=== PATIENT | female | born 1975 | race Caucasian/White ===

== ENCOUNTER 2019-12-28 22:12 | Inpatient (IN) | payer OTHER ==
[~2019-12-28] VITALS: Ht 165.1 cm; Wt 99.1 kg
[2019-12-28] MEDS ORDERED: MORPHINE SULFATE 4 MG/ML, 1ML IVPush PRN (23:00)
[2019-12-28] MEDS ORDERED: MORPHINE SULFATE 4 MG/ML, 1ML ONE (23:00)
[2019-12-28] MEDS ORDERED: ONDANSETRON 2MG/ML, 2ML IVPush ONE (23:00)
[2019-12-28] MEDS ORDERED: ONDANSETRON 2MG/ML, 2ML ONE (23:00)
[2019-12-28] MEDS ORDERED: LORazepam 2 MG/ML, 1ML IVPush ONE (23:00)
[2019-12-28] MEDS ORDERED: SODIUM CHLORIDE FLUSH 10ML SYR IVF ONE (23:00)
[2019-12-28 23:03] LABS: BASOPHILS # (AUTO) 0.05 x10^3/uL (0-0.1); BASOPHILS % (AUTO) 0 % (0-1); EOSINOPHILS # (AUTO) 0.04 x10^3/uL (0-0.4); EOSINOPHILS % (AUTO) 0 % (1-7); LYMPHOCYTES # (AUTO) 2.02 x10^3/uL (1-3.4); LYMPHOCYTES % (AUTO) 16 % (22-44); MD NO; MEAN CORPUSCULAR HEMOGLOBIN 24.7 pg (27.0-34.8); MEAN CORPUSCULAR HGB CONC 32.2 g/dL (32.4-35.8); MEAN CORPUSCULAR VOLUME 76.8 fL (80-100); MEAN PLATELET VOLUME 7.7 fL (7.4-10.4); MONOCYTES # (AUTO) 0.93 x10^3/uL (0.2-0.8); MONOCYTES % (AUTO) 7 % (2-9); NEUTROPHILS # (AUTO) 9.72 x10^3/uL (1.8-6.8); NEUTROPHILS % (AUTO) 76 % (42-75); PLATELET COUNT 340 x10^3/uL (130-400); RED BLOOD COUNT 4.27 x10^6/uL (3.82-5.3)
[2019-12-28 23:13] LABS: ALANINE AMINOTRANSFERASE 96 U/L (12-78); ALBUMIN 3.7 g/dL (3.4-5.0); ANION GAP 11 mmol/L (5-15); CALCIUM 8.9 mg/dL (8.5-10.1); CHLORIDE 102 mmol/L (98-107); CREATININE 1.05 mg/dL (0.55-1.02)
[2019-12-28] MEDS ORDERED: LORazepam 2 MG/ML, 1ML ONE (23:13)
[2019-12-28 23:18] LABS: ALKALINE PHOSPHATASE 79 U/L (45-117); BILIRUBIN,TOTAL 0.4 mg/dL (0.2-1.0); TOTAL PROTEIN 7.6 g/dL (6.4-8.2)
--- NOTE | 2019-12-29 00:11 | NUR ---
pt with c/o diffuse abd that started around 12 hours ago. pt medicated for pain and anxiety per emar. pt verbalized relief of pain and pt is visibly less anxious, laying comfortably on gurney with SO at bedside.
[2019-12-29] MEDS ORDERED: OMNIPAQUE 350 MG/ML, 100ML BOTTLE ONE (00:30)
[2019-12-29 00:53] LABS: MICROSCOPIC INDICATED
[2019-12-29 00:54] LABS: CULTURE INDICATED? YES
[2019-12-29] MEDS ORDERED: levothyroxine PO (01:19)
[2019-12-29] MEDS ORDERED: hydrochlorothiazide PO (01:21)
[2019-12-29] MEDS ORDERED: prozac PO (01:21)
[2019-12-29] MEDS ORDERED: lisinopril PO (01:21)
[2019-12-29] MEDS ORDERED: ONDANSETRON 2MG/ML, 2ML IVPush PRN (02:30)
[2019-12-29] MEDS ORDERED: morphine SULFATE 10 MG/ML, 1ML IVPush PRN (02:30)
[2019-12-29 02:48] LABS: CHOL/HDL RATIO 5.3; LDL/HDL RATIO 3.3 (0.5-3.0)
[2019-12-29] MEDS ORDERED: OMEP20CA20 PO (03:16)
[2019-12-29] MEDS ORDERED: CEFTRIAXONE PMX 2GM/50ML 50 ML IV SCH (04:00)
[2019-12-29 05:34] VITALS: BP 151/85
[2019-12-29 07:24] VITALS: BP 149/76
[2019-12-29] MEDS ORDERED: MAGNESIUM CITRATE 300ML ORAL SOL PO ONE (07:30)
[2019-12-29] MEDS ORDERED: KETOROLAC 30 MG/1 ML IVPush PRN (07:30)
[2019-12-29] MEDS ORDERED: BISACODYL 10 MG SUPP PR ONE (07:30)
[2019-12-29 08:25] LABS: ALANINE AMINOTRANSFERASE 94 U/L (12-78); ALBUMIN 3.6 g/dL (3.4-5.0); ANION GAP 9 mmol/L (5-15); CALCIUM 8.7 mg/dL (8.5-10.1); CHLORIDE 101 mmol/L (98-107); CREATININE 0.93 mg/dL (0.55-1.02)
[2019-12-29 08:27] LABS: ALKALINE PHOSPHATASE 80 U/L (45-117); BILIRUBIN,TOTAL 0.4 mg/dL (0.2-1.0); TOTAL PROTEIN 7.5 g/dL (6.4-8.2)
[2019-12-29] MEDS ORDERED: ONDANSETRON ODT 4 MG PO PRN (08:30)
[2019-12-29] MEDS ORDERED: ONDANSETRON 4 MG TABLET ONE (08:34)
[2019-12-29 08:36] LABS: BASOPHILS # (AUTO) 0.11 x10^3/uL (0-0.1); BASOPHILS % (AUTO) 1 % (0-1); EOSINOPHILS # (AUTO) 0.12 x10^3/uL (0-0.4); EOSINOPHILS % (AUTO) 1 % (1-7); LYMPHOCYTES # (AUTO) 2.87 x10^3/uL (1-3.4); LYMPHOCYTES % (AUTO) 21 % (22-44); MD NO; MEAN CORPUSCULAR HEMOGLOBIN 24.3 pg (27.0-34.8); MEAN CORPUSCULAR HGB CONC 31.4 g/dL (32.4-35.8); MEAN CORPUSCULAR VOLUME 77.5 fL (80-100); MEAN PLATELET VOLUME 7.8 fL (7.4-10.4); MONOCYTES # (AUTO) 1.06 x10^3/uL (0.2-0.8); MONOCYTES % (AUTO) 8 % (2-9); NEUTROPHILS # (AUTO) 9.84 x10^3/uL (1.8-6.8); NEUTROPHILS % (AUTO) 70 % (42-75); PLATELET COUNT 363 x10^3/uL (130-400); RED BLOOD COUNT 4.33 x10^6/uL (3.82-5.3); RED CELL DISTRIBUTION WIDTH 16.2 % (9.6-15.2)
[2019-12-29] MEDS: SODIUM CHLORIDE 0.9% 1,000 ML IV SCH (09:46)
[2019-12-29] MEDS: HEPARIN 5,000 UNITS/ML, 1ML SQ SCH ×2 (09:46→16:46)
[2019-12-29] MEDS: ACETAMINOPHEN 325 MG TABLET PO PRN ×2 (10:20→20:30)
[2019-12-29 13:56] LABS: CLOSTRIDIUM DIFFICILE ANTIGEN NEGATIVE; CLOSTRIDIUM DIFFICILE TOXIN NEGATIVE (Negative)
[2019-12-29] MEDS ORDERED: SIMETHICONE 80 MG CHEW TAB PO PRN (15:00)
[2019-12-29 16:00] VITALS: BP 143/68
[2019-12-29] MEDS: LACTOBACILLUS CHEW TABLET PO SCH ×2 (16:46→20:30)
[2019-12-29 18:43] VITALS: BP 102/59
[2019-12-29 19:47] VITALS: BP 136/91
[2019-12-29] MEDS: LOSARTAN 50MG TABLET PO SCH (20:31)
[2019-12-29] MEDS: AMLODIPINE 2.5 MG TABLET PO SCH (20:31)
[2019-12-29] MEDS ORDERED: SENNA/DOCUSATE TABLET PO SCH (21:00)
[2019-12-30] MEDS: HEPARIN 5,000 UNITS/ML, 1ML SQ SCH ×4 (00:27→17:26)
[2019-12-30 00:36] VITALS: BP 100/64
[2019-12-30] MEDS: CEFTRIAXONE PMX 2GM/50ML 50 ML IV SCH (04:22)
[2019-12-30] MEDS: SODIUM CHLORIDE 0.9% 1,000 ML IV SCH ×2 (04:22→23:46)
[2019-12-30 05:17] LABS: BASOPHILS # (AUTO) 0.05 x10^3/uL (0-0.1); BASOPHILS % (AUTO) 1 % (0-1); EOSINOPHILS # (AUTO) 0.18 x10^3/uL (0-0.4); EOSINOPHILS % (AUTO) 2 % (1-7); LYMPHOCYTES # (AUTO) 2.16 x10^3/uL (1-3.4); LYMPHOCYTES % (AUTO) 25 % (22-44); MD NO; MEAN CORPUSCULAR HEMOGLOBIN 24.6 pg (27.0-34.8); MEAN CORPUSCULAR HGB CONC 31.8 g/dL (32.4-35.8); MEAN CORPUSCULAR VOLUME 77.5 fL (80-100); MEAN PLATELET VOLUME 7.8 fL (7.4-10.4); MONOCYTES # (AUTO) 1.14 x10^3/uL (0.2-0.8); MONOCYTES % (AUTO) 13 % (2-9); NEUTROPHILS # (AUTO) 5.25 x10^3/uL (1.8-6.8); NEUTROPHILS % (AUTO) 60 % (42-75); PLATELET COUNT 302 x10^3/uL (130-400); RED BLOOD COUNT 4.16 x10^6/uL (3.82-5.3); RED CELL DISTRIBUTION WIDTH 16.6 % (9.6-15.2)
[2019-12-30 05:25] LABS: ANION GAP 6 mmol/L (5-15); CALCIUM 8.1 mg/dL (8.5-10.1); CHLORIDE 106 mmol/L (98-107)
[2019-12-30 05:28] LABS: ALANINE AMINOTRANSFERASE 75 U/L (12-78); ALKALINE PHOSPHATASE 86 U/L (45-117); BILIRUBIN,TOTAL 0.7 mg/dL (0.2-1.0); CREATININE 0.76 mg/dL (0.55-1.02); TOTAL PROTEIN 6.8 g/dL (6.4-8.2)
[2019-12-30 07:19] VITALS: BP 112/62
[2019-12-30] MEDS: LACTOBACILLUS CHEW TABLET PO SCH ×3 (08:01→20:00)
[2019-12-30] MEDS: FERROUS SULFATE 325 MG TABLET PO SCH (08:02)
[2019-12-30] MEDS ORDERED: LORazepam 2 MG/ML, 1ML IVPush ONE ×3 (10:30→20:00)
[2019-12-30] MEDS: ACETAMINOPHEN 325 MG TABLET PO PRN (10:36)
[2019-12-30 12:37] VITALS: BP 117/70
[2019-12-30 19:36] VITALS: BP 116/73
[2019-12-30] MEDS: LOSARTAN 50MG TABLET PO SCH (20:00)
[2019-12-30] MEDS: AMLODIPINE 2.5 MG TABLET PO SCH (20:01)
[2019-12-30 20:11] VITALS: BP 132/88
[2019-12-30] MEDS ORDERED: OMNIPAQUE 350 MG/ML, 100ML BOTTLE ONE (20:33)
[2019-12-30] MEDS ORDERED: LOPERAMIDE 2 MG CAPSULE PO PRN (22:30)
[2019-12-31] MEDS: HEPARIN 5,000 UNITS/ML, 1ML SQ SCH ×2 (01:37→08:59)
[2019-12-31 02:10] VITALS: BP 101/67
[2019-12-31] MEDS: CEFTRIAXONE PMX 2GM/50ML 50 ML IV SCH (04:41)
[2019-12-31] MEDS: LEVOTHYROXINE 175 MCG TABLET PO SCH (06:41)
[2019-12-31] MEDS ORDERED: LORazepam 0.5MG TABLET PO PRN (08:30)
[2019-12-31 08:44] VITALS: BP 106/67
[2019-12-31] MEDS: FLUOXETINE HCL 20 MG CAPSULE PO SCH (09:00)
[2019-12-31] MEDS: LACTOBACILLUS CHEW TABLET PO SCH ×3 (09:00→20:53)
[2019-12-31] MEDS ORDERED: HEPARIN 5,000 UNITS/ML, 1ML IV ONE (11:00)
[2019-12-31] MEDS ORDERED: HEPARIN 5,000 UNITS/ML, 1ML IV PRN (11:00)
[2019-12-31] MEDS ORDERED: HEPARIN 25,000 UNITS/250ML PMX 250 ML IV PRN (11:00)
[2019-12-31 11:28] LABS: ANA SCREEN NEGATIVE (Negative)
[2019-12-31 11:31] LABS: INTERNATIONAL NORMALIZED RATIO 0.93 (0.93-1.1); PROTHROMBIN TIME 9.8 Seconds (9.6-11.5)
[2019-12-31] MEDS ORDERED: LORazepam 2 MG/ML, 1ML IVPush ONE (12:30)
[2019-12-31 14:29] VITALS: BP 123/69
[2019-12-31] MEDS: APIXABAN 5 MG TABLET PO SCH (15:13)
[2019-12-31] MEDS: SODIUM CHLORIDE 0.9% 1,000 ML IV SCH ×2 (15:14→20:53)
[2019-12-31] MEDS: ACETAMINOPHEN 325 MG TABLET PO PRN (17:57)
[2019-12-31 20:16] VITALS: BP 116/70
[2019-12-31] MEDS: AMLODIPINE 2.5 MG TABLET PO SCH (20:53)
[2019-12-31] MEDS: LOSARTAN 50MG TABLET PO SCH (20:53)
[2020-01-01 02:20] VITALS: BP 108/71
[2020-01-01] MEDS: SODIUM CHLORIDE 0.9% 1,000 ML IV SCH ×2 (03:45→11:46)
[2020-01-01] MEDS: CEFTRIAXONE PMX 2GM/50ML 50 ML IV SCH (05:19)
[2020-01-01] MEDS: LEVOTHYROXINE 175 MCG TABLET PO SCH (05:19)
[2020-01-01] MEDS: APIXABAN 5 MG TABLET PO SCH ×2 (05:19→16:01)
[2020-01-01 06:42] LABS: ALBUMIN 2.8 g/dL (3.4-5.0); ANION GAP 7 mmol/L (5-15); CALCIUM 8.3 mg/dL (8.5-10.1); CHLORIDE 111 mmol/L (98-107)
[2020-01-01 06:46] LABS: ALANINE AMINOTRANSFERASE 55 U/L (12-78); ALKALINE PHOSPHATASE 75 U/L (45-117); BILIRUBIN,TOTAL 0.3 mg/dL (0.2-1.0); CREATININE 0.73 mg/dL (0.55-1.02); TOTAL PROTEIN 6.5 g/dL (6.4-8.2)
[2020-01-01 07:04] VITALS: BP 104/70
[2020-01-01] MEDS ORDERED: SODIUM CHLORIDE 0.9% 1,000 ML IV SCH (07:30)
[2020-01-01] MEDS: LACTOBACILLUS CHEW TABLET PO SCH ×2 (09:02→16:00)
[2020-01-01] MEDS: FLUOXETINE HCL 20 MG CAPSULE PO SCH (09:04)
[2020-01-01] MEDS: FERROUS SULFATE 325 MG TABLET PO SCH (09:04)
[2020-01-01] MEDS ORDERED: LORazepam 2 MG/ML, 1ML IVPush ONE (09:30)
[2020-01-01 09:35] LABS: BASOPHILS # (AUTO) 0.05 x10^3/uL (0-0.1); BASOPHILS % (AUTO) 1 % (0-1); EOSINOPHILS # (AUTO) 0.24 x10^3/uL (0-0.4); EOSINOPHILS % (AUTO) 3 % (1-7); LYMPHOCYTES # (AUTO) 1.73 x10^3/uL (1-3.4); LYMPHOCYTES % (AUTO) 20 % (22-44); MD NO; MEAN CORPUSCULAR HGB CONC 31.8 g/dL (32.4-35.8); MEAN CORPUSCULAR VOLUME 78.7 fL (80-100); MEAN PLATELET VOLUME 7.4 fL (7.4-10.4); MONOCYTES # (AUTO) 0.79 x10^3/uL (0.2-0.8); MONOCYTES % (AUTO) 9 % (2-9); NEUTROPHILS # (AUTO) 5.75 x10^3/uL (1.8-6.8); NEUTROPHILS % (AUTO) 67 % (42-75); PLATELET COUNT 342 x10^3/uL (130-400); RED BLOOD COUNT 3.97 x10^6/uL (3.82-5.3); RED CELL DISTRIBUTION WIDTH 16.4 % (9.6-15.2)
[2020-01-01] MEDS ORDERED: OMNIPAQUE 350 MG/ML, 100ML BOTTLE ONE (09:55)
[2020-01-01] MEDS ORDERED: APIX5TAB PO (13:18)
[2020-01-01] MEDS ORDERED: AMLO2.5T5 PO (13:18)
[2020-01-01] MEDS ORDERED: LOSA50TA2 PO (13:18)
[2020-01-01] MEDS ORDERED: FERR-51 PO (13:18)
[2020-01-01 13:32] VITALS: BP 145/84
[2020-01-07] MEDS ORDERED: APIXABAN 5 MG TABLET PO SCH (16:00)
== END 2020-01-01 16:30 | disposition home or self-care (01) | DRG 699 ==
LOC: ED 12-29 01:08 → EDIP 12-29 02:05 → 3N 12-29 04:02 → 4EST 12-31 13:38 → 4WST 12-31 20:15 → DCLOUNGE 01-01 16:15
PROVIDERS: ADMIT Family Medicine; ATTEND Hospitalist
DX: N28.0 Ischemia and infarction of kidney (principal); I74.09 Other arterial embolism and thrombosis of abdominal aorta; E87.2 Acidosis; N17.9 Acute kidney failure, unspecified; K21.9 Gastro-esophageal reflux disease without esophagitis; E03.9 Hypothyroidism, unspecified; I10 Essential (primary) hypertension; D50.9 Iron deficiency anemia, unspecified; D72.829 Elevated white blood cell count, unspecified; E66.9 Obesity, unspecified; F32.9 Major depressive disorder, single episode, unspecified; G47.00 Insomnia, unspecified; K64.8 Other hemorrhoids; R19.7 Diarrhea, unspecified; F17.200 Nicotine dependence, unspecified, uncomplicated; Z82.49 Family history of ischemic heart disease and other diseases of the circulatory system; Z90.49 Acquired absence of other specified parts of digestive tract
CPT/HCPCS: 36415; 70450; 71275; 74174; 74177; 76770; 80053; 80061; 80074; 80307; 81001; 82330; 82728; 83036; 83540; 83550; 83605; 83690; 83735; 84100; 84145; 84443; 84466; 84703; 85025; 85300; 85301; 85302; 85305; 85306; 85610; 85613; 85670; 85705; 85732; 86038; 86147; 87040; 87086; 87324; 93005; 93306; 96374; 96375; G0378; J0696; J1644; J2405; Q0162; Q9967; J2060; J2270; J7030

== ENCOUNTER → 2020-02-04 | Outpatient (CLI) | payer OTHER ==
[~2020-02-04] MED LIST: AMLO2.5T5 PO; APIX5TAB PO; FERR-51 PO; LOSA50TA2 PO; OMEP20CA20 PO; OMNIPAQUE 350 MG/ML, 100ML BOTTLE ONE; hydrochlorothiazide PO; levothyroxine PO; lisinopril PO; prozac PO
== END | disposition home or self-care (01) ==
LOC: CFH 08:15
PROVIDERS: ATTEND Surgery
DX: I74.10 Embolism and thrombosis of unspecified parts of aorta (principal); I70.0 Atherosclerosis of aorta; I70.8 Atherosclerosis of other arteries; M47.814 Spondylosis without myelopathy or radiculopathy, thoracic region; M47.816 Spondylosis without myelopathy or radiculopathy, lumbar region
CPT/HCPCS: 74174; Q9967